=== PATIENT | male | born 1955 | race African-American/Black ===

== ENCOUNTER 2016-10-13 15:11 | Observation (INO) | payer OTHER, MEDICAID ==
[~2016-10-13] VITALS: Ht 177.8 cm; Wt 82.6 kg
[2016-10-13] MEDS ORDERED: ONDANSETRON HCL 4MG/2ML VIAL IV STA (16:41)
[2016-10-13] MEDS ORDERED: FOLIC ACID 1 MG, THIAMINE HCL 100 MG, MVI, ADULT NO.1 10 ML in DEXTROSE 5% WATER 1,000 ML IV ONE ×4 (16:45)
[2016-10-13] MEDS ORDERED: LEVETIRACETAM 500MG PREMIX 100 ML IV ONE (16:45)
[2016-10-13] MEDS ORDERED: LORAZEPAM 2MG/ML CPJ IV ONE (16:45)
[2016-10-13 16:57] LABS: BASOPHILS % 0.5 % (0.0-2.0); EOSINOPHILS % 0.4 % (0.0-5.0); HEMOGLOBIN. 14.7 g/dL (14.0-18.0); LYMPHOCYTES % 14.3 % (20.0-50.0); MEAN CORPUSCULAR HEMOGLOBIN 31.5 pg (28.0-32.0); MEAN CORPUSCULAR HGB CONC 34.2 g/dL (31.0-37.0); MEAN CORPUSCULAR VOLUME 92.2 fL (80.0-94.0); MEAN PLATELET VOLUME 7.7 fl (7.4-10.4); MONOCYTES % 6.8 % (2.0-8.0); PLATELET 224 x1000/uL (130-400); RED BLOOD CELL COUNT 4.67 mill/uL (4.7-6.1); RED CELL DISTRIBUTION WIDTH 13.9 % (11.6-14.6); WHITE BLOOD COUNT 8.1 x1000/uL (4.5-11.0)
[2016-10-13 17:03] LABS: CHLORIDE 103 mEq/L (98-107); INDEX HEMOLYSI 1 (1-3); INDEX ICTERIC 1 (1-4); INDEX LIPEMIC 1 (1-3)
[2016-10-13 17:12] LABS: ACETAMINOPHEN < 2 ug/mL (10-30); ALANINE AMINOTRANSFERASE 28 IU/L (13-61); ALBUMIN 3.7 g/dL (3.4-5.0); ANION GAP 11; CARBAMAZEPINE < 0.5 ug/mL (4-12); CARBON DIOXIDE 28 mEq/L (21-32); ETHANOL BLOOD < 10 mg/dL; PHENOBARBITAL < 2.1 ug/mL (15.0-40.0); PHENYTOIN 0.5 ug/mL (10-20); TROPONIN I < 0.02 ng/mL (0.00-0.04); UREA NITROGEN BLOOD 13 mg/dL (7-21); VALPROIC ACID < 3.0 ug/mL (50-100); eGFR > 60 mL/min (>60)
[2016-10-13 17:23] LABS: CREATINE KINASE 1900 IU/L (39-308)
[2016-10-13] MEDS ORDERED: SODIUM CHLORIDE 0.9% 1,000 ML IV ONE (19:47)
[2016-10-13 20:18] LABS: ANION GAP 11; CALCIUM 8.6 mg/dL (8.5-10.1); CARBON DIOXIDE 28 mEq/L (21-32); CHLORIDE 102 mEq/L (98-107); INDEX HEMOLYSI 1 (1-3); INDEX ICTERIC 1 (1-4); INDEX LIPEMIC 1 (1-3); UREA NITROGEN BLOOD 12 mg/dL (7-21); eGFR > 60 mL/min (>60)
[2016-10-13 20:20] LABS: CREATINE KINASE MB FRACTION 10.2 ng/mL (0.5-3.6); TROPONIN I 0.02 ng/mL (0.00-0.04)
[2016-10-13 20:27] LABS: CREATINE KINASE 2924 IU/L (39-308)
[2016-10-13 21:06] LABS: CLARITY URINE CLEAR (CLEAR); COLOR URINE YELLOW (YELLOW); GLUCOSE URINE NEGATIVE (NEGATIVE); KETONES URINE NEGATIVE (NEGATIVE); LEUKOCYTE ESTERASE URINE NEGATIVE (NEGATIVE); NITRITE URINE NEGATIVE (NEGATIVE); OCCULT BLOOD URINE NEGATIVE (NEGATIVE); PH URINE 5.5 (4.5-8.0); PROTEIN URINE 1+ (NEGATIVE); SPECIFIC GRAVITY URINE 1.021 (1.005-1.030)
[2016-10-13 21:16] LABS: *AMPHETAMINES SCREEN URINE NEGATIVE (NEGATIVE); *BARBITURATES SCREEN URINE NEGATIVE (NEGATIVE); *BENZODIAZEPINES SCREEN URINE NEGATIVE (NEGATIVE); *COCAINE SCREEN URINE NEGATIVE (NEGATIVE); CANNABINOID URINE SCREEN NEGATIVE (NEGATIVE); ECSTASY MDMA SCREEN URINE NEGATIVE (NEGATIVE); METHADONE URINE SCREEN NEGATIVE (NEGATIVE); OPIATES URINE SCREEN NEGATIVE (NEGATIVE); PHENCYCLIDINE URINE SCREEN PRESUMTIVE POSITIVE (NEGATIVE)
[2016-10-13 21:17] LABS: BACTERIA URINE TRACE; RBC URINE NONE SEEN /hpf (0-2); SQUAMOUS EPITHELIAL CELL URINE FEW /lpf (RARE/1+); WBC URINE 0-2 /hpf (0-2)
[2016-10-14] VITALS: BP 139/94
[2016-10-14] MEDS ORDERED: ACETAMINOPHEN 325MG TABLET PO PRN (01:15)
[2016-10-14] MEDS ORDERED: LORAZEPAM 2MG/ML CPJ IV PRN (01:15)
[2016-10-14 04:00] VITALS: BP 124/63
[2016-10-14 05:40] LABS: BASOPHILS % 0.3 % (0.0-2.0); HEMATOCRIT. 42.7 % (42.0-52.0); HEMOGLOBIN. 14.5 g/dL (14.0-18.0); LYMPHOCYTES % 32.7 % (20.0-50.0); MEAN CORPUSCULAR HEMOGLOBIN 31.7 pg (28.0-32.0); MEAN CORPUSCULAR VOLUME 93.3 fL (80.0-94.0); MEAN PLATELET VOLUME 7.9 fl (7.4-10.4); MONOCYTES % 10.3 % (2.0-8.0); NEUTROPHILS % 54.7 % (40.0-76.0); PLATELET 227 x1000/uL (130-400); RED BLOOD CELL COUNT 4.58 mill/uL (4.7-6.1); RED CELL DISTRIBUTION WIDTH 13.8 % (11.6-14.6); WHITE BLOOD COUNT 5.5 x1000/uL (4.5-11.0)
[2016-10-14 06:48] LABS: ALANINE AMINOTRANSFERASE 33 IU/L (13-61); CARBON DIOXIDE 28 mEq/L (21-32); CHLORIDE 106 mEq/L (98-107); HDL CHOLESTEROL 65 mg/dL (40-59); INDEX HEMOLYSI 1 (1-3); INDEX ICTERIC 1 (1-4); INDEX LIPEMIC 1 (1-3); LDL CHOLESTEROL 70 mg/dL (5-100); TRIGLYCERIDE 78 mg/dL (0-150); TROPONIN I < 0.02 ng/mL (0.00-0.04); UREA NITROGEN BLOOD 11 mg/dL (7-21); eGFR > 60 mL/min (>60)
[2016-10-14 06:57] LABS: CREATINE KINASE 3169 IU/L (39-308); CREATINE KINASE MB FRACTION 13.3 ng/mL (0.5-3.6)
[2016-10-14] MEDS: DEXT 5%/0.45% NACL KCL 20MEQ/L 1,000 ML IV SCH ×2 (07:00→14:36)
[2016-10-14] MEDS: OMEPRAZOLE 20MG CAPSULE EXTENDED RELEASE PO SCH (07:00)
[2016-10-14 07:04] LABS: ALBUMIN 3.3 g/dL (3.4-5.0); ANION GAP 12
[2016-10-14 08:00] VITALS: BP 126/80
[2016-10-14] MEDS: THIAMINE HCL 100MG TABLET PO SCH (08:43)
[2016-10-14] MEDS: MULTIVITAMINS,THER W-MINERALS TABLET PO SCH (08:43)
[2016-10-14] MEDS: LEVETIRACETAM 500MG TABLET PO SCH ×2 (08:43→21:13)
[2016-10-14 12:00] VITALS: BP 115/66
[2016-10-14 16:00] VITALS: BP 123/78
[2016-10-14] MEDS ORDERED: HYDROCODONE/ACETAMINOPHEN 5/325MG TABLET PO PRN (16:15)
[2016-10-14] MEDS: SODIUM CHLORIDE 0.45% 1,000 ML IV SCH (17:28)
[2016-10-14 20:00] VITALS: BP 135/80
[2016-10-15] VITALS: BP 124/91
[2016-10-15] MEDS: SODIUM CHLORIDE 0.45% 1,000 ML IV SCH ×2 (00:44→08:44)
[2016-10-15 04:00] VITALS: BP 129/76
[2016-10-15] MEDS: OMEPRAZOLE 20MG CAPSULE EXTENDED RELEASE PO SCH (06:05)
[2016-10-15 06:52] LABS: BASOPHILS % 0.4 % (0.0-2.0); EOSINOPHILS % 2.1 % (0.0-5.0); HEMATOCRIT. 42.5 % (42.0-52.0); HEMOGLOBIN. 14.4 g/dL (14.0-18.0); LYMPHOCYTES % 37.1 % (20.0-50.0); MEAN CORPUSCULAR HEMOGLOBIN 31.4 pg (28.0-32.0); MEAN CORPUSCULAR HGB CONC 33.9 g/dL (31.0-37.0); MEAN CORPUSCULAR VOLUME 92.6 fL (80.0-94.0); MEAN PLATELET VOLUME 7.9 fl (7.4-10.4); MONOCYTES % 10.2 % (2.0-8.0); NEUTROPHILS % 50.2 % (40.0-76.0); PLATELET 214 x1000/uL (130-400); RED BLOOD CELL COUNT 4.59 mill/uL (4.7-6.1); RED CELL DISTRIBUTION WIDTH 13.7 % (11.6-14.6); WHITE BLOOD COUNT 4.5 x1000/uL (4.5-11.0)
[2016-10-15 08:00] VITALS: BP 116/74
[2016-10-15 08:09] LABS: INDEX HEMOLYSI 1 (1-3)
[2016-10-15 08:22] LABS: CREATINE KINASE 2007 IU/L (39-308)
[2016-10-15] MEDS: LEVETIRACETAM 500MG TABLET PO SCH (08:46)
[2016-10-15] MEDS: THIAMINE HCL 100MG TABLET PO SCH (08:46)
[2016-10-15] MEDS: MULTIVITAMINS,THER W-MINERALS TABLET PO SCH (08:46)
[2016-10-15 12:00] VITALS: BP 129/87
[2016-10-15 16:00] VITALS: BP 116/70
[2016-10-15 17:14] VITALS: BP 116/70
[2016-10-16] MEDS ORDERED: FAMOTIDINE 20MG TABLET PO SCH (09:00)
== END 2016-10-15 17:35 | disposition home or self-care (01) ==
LOC: ER 15:12 → INTOOBSV 21:38 → 8WST 21:38
PROVIDERS: ADMIT Internal Medicine; ATTEND Internal Medicine
DX: R40.4 Transient alteration of awareness (principal); G40.909 Epilepsy, unspecified, not intractable, without status epilepticus; E86.0 Dehydration; M62.82 Rhabdomyolysis; I10 Essential (primary) hypertension; F10.10 Alcohol abuse, uncomplicated
CPT/HCPCS: 36415; 70450; 80048; 80053; 80061; 80156; 80165; 80184; 80185; 80305; 80307; 80329; 81001; 82550; 82553; 82962; 84443; 84484; 85025; 93005; 96361; 96365; 96366; 96367; 96375; 99285; G0378; G0482; J1953; J2060; J2405; J3411; J3490; J7030; J7070